=== PATIENT | male | born 1965 | race Caucasian/White ===

== ENCOUNTER 2019-11-15 13:47 | Emergency (ER) | payer BC, SELFPAY ==
--- NOTE | ~2019-11-15 | XR_ITS ---
EXAMINATION: XR chest 2V DATE: 11/15/2019 14:24 INDICATION: Cough. Fever. TECHNIQUE: Frontal and lateral views of the chest were obtained. COMPARISON: Chest 2 views 04/01/2018, CT abdomen and pelvis 04/14/2018 FINDINGS: The chest demonstrates clear lungs without pneumonia, pleural effusion, or pneumothorax. Th e heart size is normal. IMPRESSION: 1. No acute cardiopulmonary disease. Reviewed, dictated and finalized at location A. [employer]
[2019-11-15 13:50] VITALS: BP 139/97; PULSE 131; RESP 20; TEMP 38.9; O2SAT 100
--- NOTE | 2019-11-15 14:00 | ED.GENADULT ---
HPI - General Adult General Chief complaint: Unspecified Stated complaint: multiple complaints Time Seen by Provider: 11/15/19 13:59 Source: patient Mode of arrival: ambulatory Limitations: no limitations History of Present Illness HPI narrative: Pt is a 53 y/o male who presents to the ED with c/o palpitations, dizziness, and weakness for 1 week. He notes that he spiked a fever today and went and saw his PCP, Dr. Cameron who recommended he come to the ED. Pt denies a cough, rhinorrhea, ABD pain, nausea, or vomiting. Pt took Ibuprofen last night. He is a 1PPD smoker. MD complaint: Palpitations Onset (ago): week(s) (1) Associated symptoms: fever/chills and other (dizziness, weakness) Treatments prior to arrival: other (Ibuprofen last night) Related Data Allergies Allergy/AdvReac Type Severity Reaction Status Date / Time No Known Allergies Allergy Unverified 04/14/18 12:52 Review of Systems Review of Systems: All systems reviewed & are unremarkable except as noted in HPI and below Constitutional: Constitutional: Reports fever(s) and Reports weakness ENT: Denies other (rhinorrhea) Cardiovascular: Cardiovascular: Reports palpitations Respiratory: Respiratory: Denies cough Gastrointestinal: Gastrointestinal: Denies abdominal pain, Denies nausea and Denies vomiting Neurologic: Reports dizziness PMFSH Past Medical History Medical History (Updated 11/15/19 @ 16:33 by Oscar Noe DO) No significant past medical history Surgical History Surgical History (Updated 11/15/19 @ 14:12 by Patty Vila) No significant past surgical history Social History Social History (Updated 11/15/19 @ 14:12 by Patty Vila) Smoking packs per day: 1 Smoking cigarettes per day: 20.0 Smoking status: Current every day smoker Gender identity (if verbalized by the patient): Male Exam Narrative: Exam Narrative: APPEARANCE: No acute distress, nontoxic, resting in bed EYES: EOMI HEENT: Normocephalic, atraumatic, TMs clear bilaterally, mild tenderness boggy, mild erythema no exudate posterior pharynx Neck: Supple, nontender palpation, no meningismus RESPIRATORY: No respiratory distress Clear to auscultation bilaterally with no rhonchi wheezing or rales. CARDIOVASCULAR: Regular rate and rhythm without murmurs rubs or gallops. ABDOMINAL: Soft, nontender, nondistended, no rebound or guarding MUSCULOSKELETAl: Moves all extremities. No clubbing, cyanosis or edema. NEURO: Awake and alert. Following commands, speech normal, no focal deficits SKIN:: Warm, dry. No rashes lesions or abrasions PSYCHIATRIC: Normal affect/mood, Course Course Emergency Course: Discussed with patient results of workup and diagnosis. Discussed need for follow-up with primary care, proper use of medication, and reasons to return to the emergency department. Patient understands and agrees to current treatment plan Consultations Consultation #1: Discussed case with Dr. Cameron, PCP for the pt. Start on Z-pack and have pt follow up as outpatient Date: 11/15/19 Time: 16:27 Vital Signs Vital signs: Vital Signs Temperature 102.0 F H 11/15/19 13:50 Pulse Rate 131 H 11/15/19 13:50 Respiratory Rate 11/15/19 13:50 Blood Pressure 139/97 H 11/15/19 13:50 Pulse Oximetry 100 11/15/19 13:50 Temperature 102.0 F H 11/15/19 13:50 Pulse Rate 98 11/15/19 15:36 Respiratory Rate 11/15/19 15:36 Blood Pressure 121/83 11/15/19 15:36 Pulse Oximetry 95 11/15/19 15:36 Medical Decision Making Vital Signs Vital Signs: Vital Signs Temperature 102.0 F H 11/15/19 13:50 Pulse Rate 131 H 11/15/19 13:50 Respiratory Rate 11/15/19 13:50 Blood Pressure 139/97 H 11/15/19 13:50 Pulse Oximetry 100 11/15/19 13:50 Temperature 102.0 F H 11/15/19 13:50 Pulse Rate 98 11/15/19 15:36 Respiratory Rate 11/15/19 15:36 Blood Pressure 121/83 11/15/19 15:36 Pulse Oximetry 95 11/15/19 15:36 Lab Data Re
--- NOTE | 2019-11-15 14:14 | ECG_ITS ---
Measurements Intervals [place] Rate: 116 P: 5 HI: 187 QRS: -35 QRSD: 86 T: 20 QT: 282 QTc: 392 Interpretive Statements SINUS TACHYCARDIA LEFT AXIS DEVIATION RSR' IN V1 OR V2, CONSIDER RIGHT VENTRICULAR HYPERTROPHY OR RIGHT VCD DELAYED PRECORDIAL R/S TRANSITION BORDERLINE ECG Electronically Signed On 11-22-2019 12:48:54 BUSINESS PLANNING MANAGER by Raymundo Espinoza D.O.
[2019-11-15 14:25] LABS: Basophils Absolute Auto 0.1 K/mm3 (0.0-0.1); Basophils Percent Auto 0.5 % (0.2-1.2); Eosinophils Percent Auto 0.3 % (0-4.4); Hematocrit 40.8 % (42.0-52.0); Hemoglobin 13.6 g/dL (14.0-18.0); Immature Granulocyte Absolute 0.04 K/mm3 (0.00-0.031); Immature Granulocyte Percent A 0.4 % (0-0.5); Lymphocytes Absolute Auto 1.41 K/mm3 (0.9-3.2); Lymphocytes Percent Auto 13.8 % (18.3-44.2); Mean Corpuscular HGB Conc 33.3 g/dl (32-36); Mean Corpuscular Hemoglobin 28.6 pg (26-34); Mean Corpuscular Volume 85.9 fl (80-100); Mean Platelet Volume 9.1 fl (7.4-10.4); Monocytes Percent Auto 9.9 % (2.6-8.5); Neutrophils Absolute Auto 7.7 K/mm3 (1.3-6.7); Neutrophils Percent Auto 75.1 % (45.5-73.1); Platelet Count Result 378 k/mm3 (150-375); Red Blood Count 4.75 M/mm3 (4.6-6.20); Red Cell Distribution Width 12.9 % (11.5-14.5); White Blood Count 10.2 K/mm3 (4.5-10.0)
[2019-11-15 14:45] LABS: Alanine Aminotransferase 29 U/L (4-50); Albumin Level 4.4 g/dL (3.5-5.1); Alkaline Phosphatase 117 U/L (38-126); Aspartate Amino Transferase 30 U/L (17-59); Bilirubin,Total 0.7 mg/dL (0.2-1.3); Blood Urea Nitrogen 14 mg/dL (9-20); Calcium 9.3 mg/dL (8.4-10.2); Carbon Dioxide 27 mmol/L (22-30); Chloride 96 mmol/L (98-107); Estimated Glomerular Filt Rate > 60; Glucose 104 mg/dL (75-110); Lactic Acid Reflex 1.4 mmol/L (0.7-2.1); Potassium 4.1 mmol/L (3.4-5.0); Sodium 134 mmol/L (137-145)
[2019-11-15] MEDS: LACTATED RINGERS 1,000 ML 999 ML IV CONT ×2 (14:54→15:40)
[2019-11-15 15:11] LABS: Add Urine Microscopic? YES; Appearance Urine Clear (Clear); Bilirubin Urine Negative (Negative); Blood Urine 2+ (Negative); Color Urine Yellow (Yellow); Glucose Urine UA Negative (Negative); Ketones Urine Negative (Negative); Leukocyte Esterase Ur Negative LEU/UL (Negative); Mucus Urine Rare /lpf; Nitrate Urine Negative (Negative); Protein Urine 1+ mg/dL (Negative); Specific Grav Ur 1.016 (1.001-1.035); Squamous Epithelial Cell Urine Rare /hpf (Few); Urobilinogen Urine Negative mg/dL (<2.0); WBC Urine 0-3 /hpf
[2019-11-15 15:36] VITALS: BP 121/83; PULSE 98; RESP 19; O2SAT 95
[2019-11-15 18:00] VITALS: BP 124/85
--- NOTE | 2019-11-18 08:48 | PC.NURSE ---
LATE ENTRY This note is being entered to document information to the patient's record. The following information was omitted on [Tamar August], by [11/18/19] LR stopped at 1554 on 11/15/19 LR stopped at 1640 on 11/15/19.
== END 2019-11-15 17:00 | disposition home or self-care (01) ==
PROVIDERS: Emergency Provider Emergency Medicine; PCP Family Medicine
DX: B34.9 Viral infection, unspecified (principal); R00.0 Tachycardia, unspecified; F17.210 Nicotine dependence, cigarettes, uncomplicated
CPT/HCPCS: 36415; 71046; 80053; 81001; 83605; 85025; 87040; 87804; 93005; 96361; 96365; 99284; J0131; J7120

== ENCOUNTER 2020-10-27 12:21 | Outpatient (CLI) | payer BC, SELFPAY ==
--- NOTE | ~2020-10-27 | CT_ITS ---
EXAMINATION: CT abdomen w con EXAM DATE: 10/27/2020 13:03 INDICATION: I72.8 - Aneurysm of other specified arteries. TECHNIQUE: Spiral CT of the abdomen and pelvis was performed following intravenous injection of 100 m L Omnipaque 350. Axial, coronal and sagittal images were reviewed. The dose-length product (DLP) fo r this examination was 1008.51 mGy-cm. The exposure was tailored according to patient size (auto mA exposure control), and iterative reconstruction (ASIR) was used as additional dose reduction techniqu e. Comparison is made to prior examination from 04/14/2018. FINDINGS: There are 2 fusiform splenic artery aneurysms measuring 1.8 and 1.4 cm in maximal diameter, not significant changed. The splenic and hepatic arteries have separate origins, with a gastroduoden al branch of the hepatic artery demonstrating direct connection to a superior mesenteric vein tributa ry (finding indicated on axial image 73). This arteriovenous shunting is likely causing the prominent dilated left abdominal, omental and perigastric veins draining to the portal venous system. Aorta is normal in caliber. The liver, spleen, adrenal glands and pancreas are unremarkable. Gallbladder is unremarkable. No bi liary obstruction. Portal and splenic veins are patent. Kidneys enhance symmetrically. There is no hydronephrosis. There is a 5 mm left inferior calyceal stone. There is a left renal midpole cyst deon suring 3.9 cm. No retroperitoneal lymphadenopathy. Small umbilical fat-containing hernia. The appendix is normal. The stomach and small bowel are unremarkable. There is expected amount of c olonic stool. No free intraperitoneal gas. The heart is normal in size. There are no pericardial or pleural effusions. There is a 9 mm left lower lobe nodule in the posterior sulcus, new compared to prior study. There are no osteoblastic or osteolytic lesions identified. IMPRESSION: 1. New indeterminate left lower lobe 9 mm nodule; recommend 3 month follow-up low-dose chest CT. 2. 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 Resultant dilated perigastric, and greater omental and left abdominal veins. 3. Stable fusiform splenic artery aneurysms. 4. Left nephrolithiasis. Reviewed, dictated and finalized at location B. CAL OFFICE SCHEDULER IMPRESSION: 1. New indeterminate left lower lobe 9 mm nodule; recommend 3 month follow-up low-dose chest CT. 2. Arteriovenous communication, shunting identified between gastroduodenal bra nch and SMV tributary. Resultant dilated perigastric, and greater omental and l eft abdominal veins. 3. Stable fusiform splenic artery aneurysms. 4. Left nephrolithiasis.
[2020-10-27 12:53] LABS: Estimated Glomerular Filt Rate > 60
== END 2020-10-27 12:22 | disposition home or self-care (01) ==
LOC: ANHIMG 12:31
PROVIDERS: PCP Internal Medicine; Visit Provider Nurse Practitioner
DX: I72.8 Aneurysm of other specified arteries (principal); N20.0 Calculus of kidney
CPT/HCPCS: 74160; Q9967

== ENCOUNTER 2020-11-28 09:20 | Outpatient (CLI) | payer BC, SELFPAY ==
--- NOTE | 2020-12-11 13:59 | WPDHOMESLEEP ---
Sleep Study - Home Unattended Date of Study: 11/28/20 Ordering Provider: Julio Cesar Cuevas DO Interpreting Provider: Angélica Courtney MD Home Sleep Study Type: Apnea Link Air Height: 1.75 m Weight: 113.398 kg Body Mass Index: 36.9 Neck Circumference (inches): 16 [place]: 16 Reason for Sleep Study Always feels tired, sleepy in the day Sleep History Jose Gross is a 55 year-old man with hypertension who constantly snores and it is constantly loud enough the others complain about it. He has difficulty falling asleep, he wakes up throughout the night, he has a difficult time waking in the morning and he sleepy all day. He had a test over 5 years ago was told that he did not have enough episodes thus qualify for treatment. There is a positive family history with his mother having sleep apnea. He rarely awakens at night with heartburn, belching or coughing. He rarely awakens from sleep feeling short of breath. He rarely has trouble sleeping with a cold. He rarely wakes up gasping for breath at night. He occasionally has breathing problems at night observed by others. He frequently sweats excessively at night. He occasionally notices his heart pounding or beating irregularly at night. He frequently falls asleep during the day, occasionally involuntarily rarely while driving. He does not fall asleep while exerting physical effort. He does not have loss of muscle tone was strong emotion. He rarely has daytime difficulties due to excessive sleepiness. He does not feel paralyzed on waking or falling asleep. He occasionally has vivid dreamlike scenes upon awakening or falling asleep. He occasionally feels afraid to go to sleep. He occasionally has nightmares. He rarely remembers his dreams. He occasionally has racing thoughts. He rarely feels sad or depressed. On occasion he feels anxiety. He rarely has muscular tension. He rarely notices parts of his body jerking. He occasionally kicks at night, occasionally has crawling and aching feelings in his legs and occasionally has leg pain at night. He rarely has morning jaw pain. He occasionally grind his teeth during sleep, occasionally is bothered by pain during the day and occasionally is awakened by pain at night. He frequently wakes up feeling stiff in the morning with sore achy muscles and pain in the neck and spine. He has headaches, palpitations, fatigue and bowel disturbances. Normal bedtime is 12:00 a.m. taking 1-2 hours to fall asleep typically waking 3-6 times at night. He tosses and turns. He wakes the morning between 6 and 8:00 a.m.. He estimates getting only 4-6 hours of sleep on a typical night. His weekend schedule is the same. He takes naps in the afternoon or evening. A short nap is not refreshing. He is drowsy in the morning for 3 hours or longer. Habits: Tobacco 1 pack per day. Caffeine 2 cups of coffee a day 2 per week No recreational drugs. [facility] Past Medical History Medical History Essential (primary) hypertension Hyperlipidemia Splenic artery aneurysm Surgical History Surgical History No significant past surgical history Family History Family History Father , Cancer Lung cancer Mother Heart disease Sibling Bladder cancer Sibling Breast cancer Sibling Leukemia Social History Social History (Updated 10/19/20 @ 10:17 by Daniel Corley APRN) Smoking packs per day: 1 Smoking cigarettes per day: 20.0 Years smoked: 25 Smoking pack-years: 25.00 Smoking status: Current every day smoker Substance use: never Additional occupation/education comments: Currently laid off maintenance specialist for local [employer] Gender identity (if verbalized by the patient): Male Medications Home Medications Medication Instructions Recorded Co
[2020-12-11 14:10] VITALS: BMI 36.9
== END 2020-11-28 09:21 | disposition home or self-care (01) ==
LOC: ANHCSM 09:20
PROVIDERS: PCP Internal Medicine; Visit Provider Internal Medicine
DX: G47.10 Hypersomnia, unspecified (principal); G47.33 Obstructive sleep apnea (adult) (pediatric)
CPT/HCPCS: 95806

== ENCOUNTER → 2020-12-15 02:11 | Outpatient (CLI) | payer BC, SELFPAY ==
[2020-12-16 08:28] LABS: SARS-CoV-2 RNA PCR Negative
== END ==
PROVIDERS: PCP Internal Medicine; Visit Provider Internal Medicine Critical Care Medicine
DX: R68.89 Other general symptoms and signs (principal); Z20.822 Contact with and (suspected) exposure to COVID-19
CPT/HCPCS: C9803; U0003; U0005

== ENCOUNTER 2020-12-18 09:15 | Outpatient (CLI) | payer BC, SELFPAY ==
--- NOTE | 2021-01-10 10:21 | WPDSLEEPSTUD ---
Sleep Study Ordering Provider: Julio Cesar Cuevas DO Interpreting Physician: Angélica Courtney MD Sleep Study Type: CPAP Titration Height: 1.75 m Weight: 113.398 kg Body Mass Index: 36.9 Neck Circumference (inches): 16 [place]: 18 Reason for Sleep Study Home sleep test on 11/28/2020 with AHI 12.3, desaturation to 81% with central apneas, presents for CPAP titration Sleep History Jose Gross is a 55 year-old man with hypertension who constantly snores and it is constantly loud enough the others complain about it. He has difficulty falling asleep, he wakes up throughout the night, he has a difficult time waking in the morning and he sleepy all day. He had a test over 5 years ago was told that he did not have enough episodes thus qualify for treatment. There is a positive family history with his mother having sleep apnea. He rarely awakens at night with heartburn, belching or coughing. He rarely awakens from sleep feeling short of breath. He rarely has trouble sleeping with a cold. He rarely wakes up gasping for breath at night. He occasionally has breathing problems at night observed by others. He frequently sweats excessively at night. He occasionally notices his heart pounding or beating irregularly at night. He frequently falls asleep during the day, occasionally involuntarily rarely while driving. He does not fall asleep while exerting physical effort. He does not have loss of muscle tone was strong emotion. He rarely has daytime difficulties due to excessive sleepiness. He does not feel paralyzed on waking or falling asleep. He occasionally has vivid dreamlike scenes upon awakening or falling asleep. He occasionally feels afraid to go to sleep. He occasionally has nightmares. He rarely remembers his dreams. He occasionally has racing thoughts. He rarely feels sad or depressed. On occasion he feels anxiety. He rarely has muscular tension. He rarely notices parts of his body jerking. He occasionally kicks at night, occasionally has crawling and aching feelings in his legs and occasionally has leg pain at night. He rarely has morning jaw pain. He occasionally grind his teeth during sleep, occasionally is bothered by pain during the day and occasionally is awakened by pain at night. He frequently wakes up feeling stiff in the morning with sore achy muscles and pain in the neck and spine. He has headaches, palpitations, fatigue and bowel disturbances. Normal bedtime is 12:00 a.m. taking 1-2 hours to fall asleep typically waking 3-6 times at night. He tosses and turns. He wakes the morning between 6 and 8:00 a.m.. He estimates getting only 4-6 hours of sleep on a typical night. His weekend schedule is the same. He takes naps in the afternoon or evening. A short nap is not refreshing. He is drowsy in the morning for 3 hours or longer. Habits: Tobacco 1 pack per day. Caffeine 2 cups of coffee a day 2 per week No recreational drugs. 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
[2021-01-10 10:48] VITALS: BMI 36.9
== END 2020-12-18 09:16 | disposition home or self-care (01) ==
LOC: ANHCSM 09:15
PROVIDERS: PCP Internal Medicine; Visit Provider Internal Medicine
DX: G47.33 Obstructive sleep apnea (adult) (pediatric) (principal)
CPT/HCPCS: 95811

== ENCOUNTER 2021-02-21 14:15 | Outpatient (CLI) | payer BC, SELFPAY ==
--- NOTE | ~2021-02-21 | CT_ITS ---
EXAMINATION: CT diagnostic chest wo con EXAM DATE: 02/21/2021 14:33 INDICATION: 3 month F/U pulmonary nodule. TECHNIQUE: Spiral CT of the chest following intravenous injection of 75 mL Omnipaque 350. Axial, cor onal and sagittal images of the chest were reviewed. Coronal maximum intensity pixel images of chest reviewed. The dose-length product (DLP) for this examination was 273.57 mGy-cm. The exposure was t ailored according to patient size (auto mA exposure control), and iterative reconstruction (ASIR) was used as additional dose reduction technique. Correlation is made to abdomen pelvis CT 10/27/2020. FINDINGS: Left lower lobe nodule measuring 9 x 11 mm, appears unchanged in size compared to October, could be a noncalcified granuloma. Additional history provided with this exam that patient does use tobacco, is at risk for lung cancer. 3 months stability is comforting, therefore could obtain a six-m [facility] follow-up exam rather than PET/CT at this time (nodule is just at the size threshold to evaluate by PET CT). The lungs are otherwise clear. Compared to previous examination, there are multiple coils within the splenic artery, with sizable lo w density region at its anterior inferior aspect measuring about 6 cm in diameter, probably recent ia trogenic infarction with edema causing increased size. This would be expected to decrease in size on follow-up. Again there are serpiginous upper abdominal collaterals from the previously placed right-s ided arteriovenous shunting. There are no pleural or pericardial effusions. Tracheobronchial tree is patent. There is no media stinal, hilar or axillary lymphadenopathy. There is no pneumothorax. Heart normal in size. Ther e is mild coronary arterial calcification, arterial sclerosis. There is thoracic spondylosis without osteoblastic or osteolytic lesions identified. Lower thoracic diffuse idiopathic skeletal hyperost osis. IMPRESSION: 1. Indeterminate left lower lobe nodule demonstrating 3 months stability; consider 6 month follow-up noncontrast chest CT. 2. Interval splenic arterial coils, spleen appearance probably from relatively recent iatrogenic inf arction. 3. 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 Reviewed, dictated and finalized at location A. IMPRESSION: 1. Indeterminate left lower lobe nodule demonstrating 3 months stability; cons ider 6 month follow-up noncontrast chest CT. 2. Interval splenic arterial coils, spleen appearance probably from relatively recent iatrogenic infarction. 3. 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
== END 2021-02-21 14:16 | disposition home or self-care (01) ==
PROVIDERS: PCP Internal Medicine; Visit Provider Nurse Practitioner
DX: R91.1 Solitary pulmonary nodule (principal)
CPT/HCPCS: 71250

== ENCOUNTER 2021-02-27 13:44 | Outpatient (CLI) | payer BC, SELFPAY ==
--- NOTE | ~2021-02-27 | XR_ITS ---
XR tibia fibula RT 2V DATE: 02/27/2021 13:57 INDICATION: Lateral midshaft pain right lower leg; no injury. TECHNIQUE: AP and lateral views COMPARISON: None FINDINGS: No fracture, dislocation, periosteal reaction or bone destruction. IMPRESSION: Negative Reviewed, dictated and finalized at location B. IMPRESSION: Negative
== END 2021-02-27 13:45 | disposition home or self-care (01) ==
PROVIDERS: PCP Internal Medicine; Visit Provider Internal Medicine
DX: M79.604 Pain in right leg (principal)
CPT/HCPCS: 73590

== ENCOUNTER 2021-03-19 12:30 | Outpatient (CLI) | payer BC, SELFPAY ==
--- NOTE | ~2021-03-19 | US_ITS ---
EXAMINATION: US soft tissue LE RT DATE: 03/19/2021 12:48 INDICATION: Lateral right calf pain with palpable abnormality on prior physical exam. TECHNIQUE: Multiple grayscale and Doppler ultrasound images of the lateral right calf were obtained. COMPARISON: Radiographs dated 02/27/2021 FINDINGS: Normal appearance to the subcutaneous fat and muscles the region of concern at the right calf. No abn ormal masses or fluid collections identified. IMPRESSION: 1. Normal study. Reviewed, dictated and finalized at location A. IMPRESSION: 1. Normal study.
== END 2021-03-19 12:31 | disposition home or self-care (01) ==
PROVIDERS: PCP Internal Medicine; Visit Provider Internal Medicine
DX: M79.604 Pain in right leg (principal)
CPT/HCPCS: 76882

== ENCOUNTER 2021-03-31 10:44 | Outpatient (CLI) | payer BC, SELFPAY ==
--- NOTE | ~2021-03-31 | MR_ITS ---
EXAMINATION: MR lower leg RT wo con DATE: 03/31/2021 11:53 INDICATION: Lateral right calf pain with palpable lump. TECHNIQUE: Magnetic resonance imaging (MRI) of the right calf was performed without intravenous contr ast. Sequences included axial T1-weighted FSE, axial T2-weighted FS FSE, coronal T1-weighted FSE, cor onal T2-weighted FS FSE, sagittal T1-weighted FSE and sagittal T2-weighted FS FSE. The contralateral left calf is included on the coronal images. COMPARISON: Right lower leg radiographs dated 02/27/2021 and ultrasound dated 03/29/2021 FINDINGS: Bones are unremarkable with normal marrow signal throughout. No fracture, reactive edema, erosions or pathologic marrow replacing process. Normal and symmetric muscle bulk and signal throughout both krissy ves. The visualized portions of the tendons are normal. Neurovascular structures are unremarkable. No abnormal masses or fluid collections identified. IMPRESSION: 1. Normal MRI of the right lower leg. No abnormal masses, fluid collections or other etiology identif ied for reported lateral calf palpable abnormality and pain. Reviewed, dictated and finalized at location A. IMPRESSION: 1. Normal MRI of the right lower leg. No abnormal masses, fluid collections or other etiology identified for reported lateral calf palpable abnormality and pa in.
== END 2021-03-31 10:45 | disposition home or self-care (01) ==
LOC: ANHIMG 10:46
PROVIDERS: PCP Internal Medicine; Visit Provider Internal Medicine
DX: M79.604 Pain in right leg (principal)
CPT/HCPCS: 73718

== ENCOUNTER → 2021-06-11 15:11 | Outpatient (CLI) | payer BC, SELFPAY ==
--- NOTE | ~2021-06-11 | MR_ITS ---
EXAMINATION: MR lumbar spine wo con DATE: 06/11/2021 16:08 INDICATION: Low back pain. TECHNIQUE: Magnetic resonance imaging (MRI) of the lumbar spine was performed without intravenous con trast. Sequences included sagittal T2-weighted FSE, sagittal T2-weighted FS FSE, sagittal T1-weighted FSE, and axial T2-weighted FSE. COMPARISON: CT abdomen 10/27/2020 FINDINGS: Bone alignment is normal. Vertebral body heights are normal. Intervertebral disc heights ar e normal. There are bridging endplate osteophytes from the thoracic spine to L2, consistent with diff use idiopathic skeletal hyperostosis (DISH). The distal spinal cord signal intensity is normal. The c onus medullaris is at L1-L2. There is a 4.4 cm cyst in left kidney. There is moderate left hydronephr osis. The following disc levels are specifically discussed: L1-L2: The disc does not extend beyond the endplate margin. There is mild bilateral facet joint osteo arthritis. There is no neural foraminal stenosis. There is no central canal stenosis. L2-L3: The disc does not extend beyond the endplate margin. There is mild bilateral facet joint osteo arthritis. There is no neural foraminal stenosis. There is no central canal stenosis. L3-L4: The disc does not extend beyond the endplate margin. There is mild bilateral facet joint osteo arthritis. There is no neural foraminal stenosis. There is no central canal stenosis. L4-L5: The disc is bulging. There is severe bilateral facet joint osteoarthritis. There is moderate r ight and mild left neural foraminal stenosis. There is mild central canal stenosis. There is moderate stenosis of right lateral recess. L5-S1: The disc is bulging and has an annular fissure. There is moderate right and severe left facet joint osteoarthritis. There is mild bilateral neural foraminal stenosis. There is mild central canal stenosis. IMPRESSION: 1. Moderate left hydronephrosis, new from 10/27/2020. 2. Moderate lumbar spondylosis. 3. DISH. Reviewed, dictated and finalized at location A.
== END ==
PROVIDERS: Visit Provider Orthopaedic Surgery
DX: M54.5 Low back pain (principal); M47.896 Other spondylosis, lumbar region; M48.16 Ankylosing hyperostosis [Forestier], lumbar region
CPT/HCPCS: 72148

== ENCOUNTER 2021-06-26 14:45 | Outpatient (CLI) | payer BC, SELFPAY ==
--- NOTE | ~2021-06-26 | XR_ITS ---
EXAMINATION: XR abdomen/kub 1V INDICATION: Left-sided kidney stone TECHNIQUE: Supine views of the abdomen were obtained on 2 radiographs. COMPARISON: CT, 04/14/2018 FINDINGS: There are phleboliths of the pelvis. No definite urolithiasis is identified. There are rendon ges of interval embolization likely in the splenic and gastroduodenal arteries. The bowel gas pattern is normal. There is mild osteoarthritis of the hips. IMPRESSION: 1. No definite urolithiasis identified. Reviewed, dictated and finalized at location A.
== END 2021-06-26 14:46 | disposition home or self-care (01) ==
LOC: ANHIMG 14:50
PROVIDERS: PCP Internal Medicine; Visit Provider Nurse Practitioner Adult Health
DX: N20.0 Calculus of kidney (principal)
CPT/HCPCS: 74018

== ENCOUNTER 2021-07-04 13:50 | Outpatient (CLI) | payer BC, SELFPAY ==
--- NOTE | ~2021-07-04 | CT_ITS ---
EXAMINATION: CT abdomen pelvis wo con DATE: 07/04/2021 14:17 INDICATION: Left flank pain. Microscopic hematuria. TECHNIQUE: Computed tomography (CT) of the abdomen and pelvis was performed without intravenous contr ast. Automated exposure control and iterative reconstruction technique were employed. The dose-length product was 750.70 mGy-cm. COMPARISON: 10/27/2020 FINDINGS: No interval change in a 9 mm left lower lobe nodule. Heart size is normal. Mild aortic valve calcific ation. No pericardial or pleural effusion. Punctate calcified gallstone in the decompressed gallbladd er. Liver, spleen, pancreas, bilateral adrenal glands and right kidney are normal. 4.2 cm left renal cyst. Mild left hydroureteronephrosis proximal to a 5 mm stone at the mid left ureter. No other uroli thiasis on either the right or left. 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 Significant decrease in size of the previous a dilated gastrosplenic and omental collaterals. There is mild to moderate colonic diverticulosis with a sigmoid predominance. T here is no adjacent inflammatory change to suggest diverticulitis. Small bowel and appendix are norm al. Bladder is normal. No free intraperitoneal gas or fluid. No pathologically enlarged abdominal or pelvic lymphadenopathy. There are bridging osteophytes at multiple levels in the spine, consistent wi th diffuse idiopathic skeletal hyperostosis (DISH). IMPRESSION: 1. 5 mm likely partially obstructing stone stone along the mid left ureter with mild more proximal le ft hydroureteronephrosis. 2. Cholelithiasis. 3. Unchanged 9 mm left lower lobe nodule. Recommend additional one-year follow-up low-dose noncontras t chest CT. 4. 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 Reviewed, dictated and finalized at location A. IMPRESSION: 1. 5 mm likely partially obstructing stone stone along the mid left ureter with mild more proximal left hydroureteronephrosis. 2. Cholelithiasis. 3. Unchanged 9 mm left lower lobe nodule. Recommend additional one-year follow- up low-dose noncontrast chest CT. 4. Interval embolization of the splenic artery and a a likely arteriovenous fis sean between the gastroduodenal artery and its branch of the superior mesenteri c vein.
== END 2021-07-04 13:51 | disposition home or self-care (01) ==
PROVIDERS: PCP Internal Medicine; Visit Provider Nurse Practitioner Adult Health
DX: R91.1 Solitary pulmonary nodule (principal); K80.20 Calculus of gallbladder without cholecystitis without obstruction
CPT/HCPCS: 74176

== ENCOUNTER 2021-07-05 10:03 | Day surgery (SDC) | payer BC, SELFPAY ==
[2021-07-05] VITALS (8 sets, daily range): BP systolic 99–122; BP diastolic 69–85; PULSE 55–91; RESP 14–20; TEMP 36.2–37; O2SAT 99–100; BMI 36.9
--- NOTE | ~2021-07-05 | XR_ITS ---
XR abdomen/kub 1V 07/05/2021 12:25 INDICATION: Left renal stones TECHNIQUE: KUB COMPARISON: 06/26/2021 FINDINGS: Bowel gas pattern is normal. There is no evidence of free air, mass, organomegaly, ascites or obstruction. No abnormal calculi are seen. The bones appear intact. There are embolization coil s in the upper abdomen. Moderate colonic fecal loading. Mild lumbar spondylosis. Calcifications in th e pelvis are believed to be phleboliths. IMPRESSION: 1: No acute abdominal abnormality identified. Reviewed, dictated and finalized at location A.
--- NOTE | ~2021-07-05 | XR_ITS ---
EXAMINATION: XR retrograde pyelo w/stent LT DATE: 07/05/2021 14:53 INDICATION: Left internal ureteral stent placement TECHNIQUE: Fluoroscopic images from a left internal ureteral stent placement are submitted for review . 36 seconds of fluoroscopy time. 8 fluoroscopic images FINDINGS: There is a left double-J internal ureteral stent projecting in expected position, with proximal [place] loop at the level of the renal pelvis and distal loop in the pelvis within the bladder lumen. IMPRESSION: 1. Left internal ureteral stent placement. Please refer to real-time procedural findings for detail s. Reviewed, dictated and finalized at location A. IMPRESSION: 1. Left internal ureteral stent placement. Please refer to real-time procedur al findings for details.
--- NOTE | 2021-07-05 10:59 | P.PNAN_ITS ---
Anes - Initial Pre Proc Eval Procedure: Operation Date: 07/05/21 14:30 Proposed Procedures p Cystoscopy, Left Ureteroscopy, Left Retrograde Pyelogram, Possible Left Ureteral Stent Placement, - Andrea Tan MD s Possible Holmium Laser Procedure, Stone Extraction - Andrea Tan MD Date/Time: 07/05/21 10:59 Surgeon: Andrea Tan MD Pre Op Diagnosis: Left Ureteral Stone Patient Data Age: 55 Gender: M Height: 1.75 m Weight: 113.5 kg Allergies Allergy/AdvReac Type Severity Reaction Status Date / Time No Known Allergies Allergy Verified 07/05/21 10:32 Home Medications Medication Instructions Recorded Confirmed Type amlodipine 5 mg tablet 7.5 mg PO DAILY #135 tablet 05/29/21 07/05/21 Rx atorvastatin 10 mg PO HS 07/05/21 07/05/21 History lisinopril 40 mg PO HS 07/05/21 07/05/21 History Patient hx anesthesia problems: none Family hx anesthesia problems: none Results Review: All pre-operative results and documents have been reviewed as part of the pre-operative evaluation. [facility] Past Medical History Medical History (Updated 07/05/21 @ 11:01 by Matthew Dee MD) Body mass index [BMI] 37.0-37.9, adult Essential (primary) hypertension Hyperlipidemia Hypersomnolence Low back pain Obstructive sleep apnea (~11/2020) Splenic artery aneurysm Surgical History Surgical History No significant past surgical history Family History Family History Father , Cancer Lung cancer Mother Heart disease Sibling Bladder cancer Sibling Breast cancer Sibling Leukemia Other Cerebrovascular accident High cholesterol Hypertension Social History Social History Smoking packs per day: 1 Smoking cigarettes per day: 20.0 Years smoked: 30 Smoking pack-years: 30.00 Smoking status: Current every day smoker Tobacco type: cigarettes Second hand tobacco smoke exposure: Yes Alcohol intake: current Drinks per week: 3 Alcohol use details: A COUPLE/MONTH Substance use: never Substance use type: does not use Additional occupation/education comments: Currently laid off scheduler maintenance for [employer] Gender identity (if verbalized by the patient): Male Spiritual care concerns: No Anes - Eval Final PreProcedure Day of Procedure 07/05/21 10:59 Patient weight: obese Heart: regular rate and rhythm Lungs: clear to auscultation and normal air movement Airway: Mallampati scale class II Neurological: alert and oriented Last oral intake: >/= 8 hours ASA classification: III Emergent: no Anesthetic plan: proceed Anesthesia type and monitoring: general LMA Results Review: All pre-operative results and documents have been reviewed as part of the pre-operative evaluation. Informed Consent: The patient's anesthetic plan and its attendant risks and benefits were discussed with the patient/family/POA. Questions were solicited and answers provided to the satisfaction of the patient/family/POA.
--- NOTE | 2021-07-05 12:07 | ECG_ITS ---
Measurements Intervals [place] Rate: 89 P: 20 [place]: 190 QRS: -33 QRSD: 95 T: 40 QT: 328 QTc: 401 Interpretive Statements SINUS RHYTHM LEFT AXIS DEVIATION INCOMPLETE RIGHT BUNDLE BRANCH BLOCK DELAYED PRECORDIAL R/S TRANSITION BASELINE ARTIFACT- I, III, AVR, AVL BORDERLINE ECG Electronically Signed On 07-05-2021 12:29:19 CDT by Raymundo Espinoza D.O.
[2021-07-05 12:45] LABS: Add Urine Microscopic? YES; Appearance Urine Clear (Clear); Bilirubin Urine Negative (Negative); Blood Urine 2+ (Negative); Color Urine Yellow (Yellow); Glucose Urine UA Negative (Negative); Ketones Urine Negative (Negative); Leukocyte Esterase Ur Negative LEU/UL (Negative); Nitrate Urine Negative (Negative); Protein Urine Negative (Negative); RBC Urine 0-2 /hpf (0-2); Urobilinogen Urine Negative mg/dL (<2.0); WBC Urine 0-3 /hpf
--- NOTE | 2021-07-05 12:57 | WPDHPUPDATE1 ---
History and Physical Update Update Date/Time: 07/05/21 12:57 History and Physical has been reviewed, including an updated exam of the patient. There are NO changes in the patient's condition. Risks, benefits, and alternatives have been discussed and questions answered. Patient agrees to proceed with procedure. proceed with cysto left rpg, left ureteroscopy with stone extraction, possible laser, stent
[2021-07-05] MEDS: LACTATED RINGERS 1,000 ML 30 ML IV CONT ×2 (13:06→14:53)
[2021-07-05] MEDS: ceFAZolin 2 GM/D5W 50 ML 2 GM/50 ML BAG IVPB (13:58)
[2021-07-05] MEDS: LIDOCAINE HCL 2% GEL UROJET 10 ML PKG MUCOUS MEM (14:20)
--- NOTE | 2021-07-05 14:50 | W.PM.PROC2 ---
Procedure Note - Detailed Date of Procedure 07/05/21 Pre-op Diagnosis Left Ureteral Stone Post-op Diagnosis same Procedure Performed Cystoscopy, left retrograde pyelogram, left ureteroscopy with holmium laser, stone extraction, left stent placement 4.8 [place] contour Surgeon Andrea Tan MD Anesthesia general Description of Procedure Patient is taken to the operative suite correctly identified. Once anesthesia was obtained was placed in dorsal lithotomy position and prepped draped usual sterile fashion. Twenty-two [place] scope was inserted into the bladder. He does have some lateral lobe hypertrophy. The bladder itself shows no tumors. Left ureteral orifice was cannulated with a guidewire. The 8/10 dilator was used to dilate the ureter. Flexible ureteral scope was inserted. He did have somewhat of a tight ureter. We were able to manipulate the scope up to the stent. It was too large to retrieved 1 piece. We used a holmium laser fiber to fragment in multiple pieces. In order to retrieve these we had to place ureteral access sheath in. These were then retrieved. Reinspection revealed no residual stones. Pyelogram was performed to confirm placement of the stent. 4.8 [place] contour stent was then placed with the proximal end coiled in the renal pelvis and the distal in the bladder. 2% viscous lidocaine was inserted into the urethra patient is taken recovery stable condition. He will follow up after he gets back from [place] to have the stent removed in the office. He is to call for that appointment. Drains Yes Packing No Pathology yes Complications No immediate complications Condition stable Disposition PACU
--- NOTE | 2021-07-05 15:10 | SUR.PHASEI ---
1505-URGENCY TO VOID, URINAL GIVEN, UNSUCCESSFUL.
[2021-07-05] MEDS: fentaNYL CITRATE INJ (*CRX) 100 MCG/2 ML VIAL 25 MCG IV PUSH ×4 (15:18→15:35)
[2021-07-05] MEDS: ONDANSETRON INJ 4 MG/2 ML VIAL IV PUSH (15:32)
--- NOTE | 2021-07-05 16:11 | SUR.PHASEII ---
1551-INSISTENT TO USE BATHROOM ON ARRIVAL TO OP. AMBULATED FROM STRETCHER AT BR DOOR TO TOILET AREA. INSTRUCTED TO PULL CALL LIGHT FOR ASSIST. 1556-SUMMONED TO BATHROOM, PT FEELING SOMEWHAT DIZZY AND NAUSEATED, ASSISTED TO W/C AND TAKEN TO OP ROOM TO RECLINER. IVF RECONNECTED AND RATE INCREASED. 1610-SITTING MORE UPRIGHT IN RECLINER, TAKING SODA AND CRACKERS AND STATES FEELS BETTER.
--- NOTE | 2021-07-05 16:46 | SUR.PHASEII ---
1646-PT READY FOR DISCHARGE, UNABLE TO REACH , SECOND MESSAGE LEFT.
--- NOTE | 2021-07-05 16:50 | SUR.PHASEII ---
1650-PT REACHED , WILL BE ON WAY FOR FORMING FIXER.
== END 2021-07-05 17:18 | disposition home or self-care (01) ==
PROVIDERS: PCP Internal Medicine; Visit Provider Urology
PROC: (CPT 52352; principal; 2021-07-05 14:30)
PROC: (CPT 52356; 2021-07-05 14:30)
DX: N20.1 Calculus of ureter (principal); I10 Essential (primary) hypertension; E78.5 Hyperlipidemia, unspecified; G47.33 Obstructive sleep apnea (adult) (pediatric); F17.210 Nicotine dependence, cigarettes, uncomplicated; E66.9 Obesity, unspecified; Z68.36 Body mass index [BMI] 36.0-36.9, adult
CPT/HCPCS: 52356; 74018; 74420; 81001; 82365; 88300; 93005; A9270; C1769; C1894; C2617; J0690; J2250; J2370; J2405; J2704; J3010; J7120; Q9966

== ENCOUNTER 2021-10-04 13:19 | Outpatient (CLI) | payer BC, SELFPAY ==
--- NOTE | ~2021-10-04 | US_ITS ---
US retroperitoneal comp 10/04/2021 14:07 Procedure: Realtime transabdominal ultrasound of the kidneys and bladder. Indication: Left ureteral stone Comparison: CT dated 07/04/2021 Findings: Renal echotexture is normal bilaterally without hydronephrosis, contour deforming mass or r enal calculus. There is 4.3 cm simple cyst of the left ovary. The right kidney measures 10.3 cm and l eft kidney measures 11.3 cm. Bladder within normal limits. Impression: 1: Left renal cyst measuring 4.3 cm. Otherwise, unremarkable renal ultrasound. Reviewed, dictated and finalized at location A. L GRINDER Impression: 1: Left renal cyst measuring 4.3 cm. Otherwise, unremarkable renal ultrasound.
== END 2021-10-04 13:20 | disposition home or self-care (01) ==
LOC: ANHIMG 13:20
PROVIDERS: PCP Internal Medicine; Visit Provider Urology
DX: N20.1 Calculus of ureter (principal); N28.1 Cyst of kidney, acquired
CPT/HCPCS: 76770

== ENCOUNTER 2022-03-20 07:16 | Outpatient (CLI) | payer BC, SELFPAY ==
--- NOTE | 2022-03-20 07:35 | EST_ITS ---
Patient Info Name: Jose Gross Age: 56 years : 1965 Gender: Male Ht: 69 in Wt: 250 lbs BSA: 2.40 m2 HR: 79 bpm BP: 130 / 83 mmHg Heart Rhythm: Sinus Rhythm Technical Quality: Good Exam Date: 03/20/2022 9:05 AM Exam Location: [facility] Patient Status: Outpatient Admit Date: 03/20/2022 Staff Ordering Physician: Raymundo Espinoza DO Lamp Assembler: Laura Sutherland RDCS Attending Provider: Raymundo Espinoza DO Referring Physician: Alexis MELO; Exercise Technologist: Kelli Armenta CT Exercise Physician: Raymundo Espinoza DO Exam Type: CA stress echo Study Info Indications - chest pain Treadmill exercise stress echocardiogram is performed. Summary 1. 1. Negative [place] exercise stress test for ischemic ST changes by ECG criteria. 2. 2. Reduced functional capacity, achieving 7 METs of workload. 3. 3. Appropriate HR response to exercise. 4. 4. Appropriate HR recovery at 1 minute post exercise. 5. 5. Negative stress echocardiogram for ischemia by wall motion analysis. 6. 6. Patient informed of the above results. Stress Echo Findings Left Ventricle Appropriate increase in LV endocardial thickening with systole. Appropriate augmentation of contractility with systole. No wall motion abnormality. Left Ventricle Normal LV systolic function, no wall motion abnormality. Protocol: [place] Stress ECG Details Stage: REST Duration (min): 1 min : 4 sec Speed (mph): 0.0 Grade (%): 0 HR (bpm): 81 SBP (mmHg): 130 DBP (mmHg): 83 METS: --- Stage: REST Duration (min): 34 min : 19 sec Speed (mph): 0.0 Grade (%): 0 HR (bpm): 88 SBP (mmHg): 130 DBP (mmHg): 83 METS: --- Stage: STAGE 1 Duration (min): 1 min : 0 sec Speed (mph): 1.7 Grade (%): 10 HR (bpm): 104 SBP (mmHg): 130 DBP (mmHg): 83 METS: --- Stage: STAGE 1 Duration (min): 2 min : 0 sec Speed (mph): 1.7 Grade (%): 10 HR (bpm): 116 SBP (mmHg): 130 DBP (mmHg): 83 METS: --- Stage: STAGE 1 Duration (min): 3 min : 0 sec Speed (mph): 1.7 Grade (%): 10 HR (bpm): 123 SBP (mmHg): 173 DBP (mmHg): 63 METS: --- Stage: STAGE 2 Duration (min): 1 min : 0 sec Speed (mph): 2.5 Grade (%): 12 HR (bpm): 130 SBP (mmHg): 173 DBP (mmHg): 63 METS: --- Stage: STAGE 2 Duration (min): 2 min : 0 sec Speed (mph): 2.5 Grade (%): 12 HR (bpm): 135 SBP (mmHg): 157 DBP (mmHg): 68 METS: --- Stage: STAGE 2 Duration (min): 2 min : 29 sec Speed (mph): 0.0 Grade (%): 0 HR (bpm): 141 SBP (mmHg): 157 DBP (mmHg): 68 METS: --- Stage: RECOVERY Duration (min): 0 min : 30 sec Speed (mph): 0.0 Grade (%): 0 HR (bpm): 136 SBP (mmHg): 157 DBP (mmHg): 68 METS: --- Stage: RECOVERY Duration (min): 1 min : 30 sec Speed (mph): 0.0 Grade (%): 0 HR (bpm): 127 SBP (mmHg): 157 DBP (mmHg): 68 METS: --- Stage: DOT
--- NOTE | 2022-03-20 07:35 | ECHO_ITS ---
Patient Info Name: Jose Gross Age: 56 years : 1965 Gender: Male Ht: 69 in Wt: 250 lbs BSA: 2.40 m2 HR: 86 bpm BP: 141 / 94 mmHg Technical Quality: Good Exam Date: 03/20/2022 8:00 AM Exam Location: [facility] Patient Status: Outpatient Admit Date: 03/20/2022 Staff Ordering Physician: Raymundo Espinoza DO Mailing Section Clerk: Landen Briceno, JASEN, RT Attending Provider: Raymundo Espinoza DO Referring Physician: Alexis MELO; Exam Type: CA echo doppler color flow Study Info Indications R01.1 - Cardiac murmur, unspecified Complete two-dimensional, color flow and Doppler transthoracic echocardiogram is performed. Strain analysis performed. Summary 1. Complete two-dimensional, color flow and Doppler transthoracic echocardiogram is performed. 2. Left ventricular chamber dimension is normal. 3. Left ventricular systolic function is normal, estimated at 60-65%. 4. The left ventricular diastolic function is grade I diastolic dysfunction. 5. E/e' 8 is minimally elevated. 6. Global longitudinal strain is normal at -20.7%. 7. There is moderate aortic valve sclerosis. 8. There is mild aortic valve stenosis with a peak velocity of 209 cm/s, mean gradient of 9 mmHg, and aortic valve area of 1.4 cm2. Left Ventricle E/e' 8 is minimally elevated. Global longitudinal strain is normal at -20.7%. Left ventricular chamber dimension is normal. Left ventricular systolic function is normal, estimated at 60-65%. The left ventricular diastolic function is grade I diastolic dysfunction. Right Ventricle Right ventricular systolic function is normal and with normal TAPSE 2.2 cm. Right ventricular chamber dimension is normal. Left Atria Left atrial chamber dimension is normal. Right Atria Right atrial chamber dimension is normal. Aortic Valve The aortic valve is trileaflet. There is moderate aortic valve sclerosis. There is mild aortic valve stenosis with a peak velocity of 209 cm/s, mean gradient of 9 mmHg, and aortic valve area of 1.4 cm2. There is no aortic valve regurgitation. Pulmonic Valve There is no pulmonic regurgitation. Mitral Valve There is no mitral valve stenosis. There is no mitral valve regurgitation. Tricuspid Valve There is no tricuspid valve regurgitation. Pericardium/Pleural There is no pericardial effusion. Inferior Vena Cava Normal inferior vena cava with >50% collapse upon inspiration consistent with normal right atrial pressure, 5 mmHg. Aorta The aortic root size at the sinus of Valsalva is normal. Left Ventricular Outflow Tract Name Value Normal LVOT 2D LVOT Diameter 2.0 cm LVOT Doppler LVOT Peak Gradient 4 mmHg LVOT Mean Gradient 2 mmHg LVOT VTI 19 cm LVOT VTI/AV VTI Ratio 0.5 LVOT Stroke Volume 62 ml LVOT CO 5.1 l/min LVOT CI 2.1 l/min/m2 Mitral Valve Name
== END 2022-03-20 07:17 | disposition home or self-care (01) ==
LOC: ANHCARD 07:19
PROVIDERS: PCP Internal Medicine; Visit Provider Internal Medicine Cardiovascular Disease
DX: R07.9 Chest pain, unspecified (principal); R01.1 Cardiac murmur, unspecified; I35.8 Other nonrheumatic aortic valve disorders
CPT/HCPCS: 93306; 93351

== ENCOUNTER 2022-07-24 14:02 | Outpatient (CLI) | payer BC, SELFPAY ==
--- NOTE | ~2022-07-24 | CT_ITS ---
EXAMINATION:CT lung screening DATE: 07/24/2022 14:30 INDICATION: Tobacco use. Current smoker with 30 pack year history. TECHNIQUE: Computed tomography (CT) of the chest was performed without intravenous contrast. Automate d exposure control and iterative reconstruction technique were employed. The dose-length product (DLP ) was 276.32 mGy-cm. COMPARISON: Chest CT 02/21/2021 FINDINGS: There is mild emphysema. There is mild atelectasis bilaterally. There is a 10 mm nodule in left lower lobe, stable from 02/21/2021. No pleural effusion. The heart size is normal. No pericardial effusion. There are coronary artery calcifications. There is a 4.2 cm cyst in left kidney. There is a 1 mm stone in left kidney. There are embolization coils in the abdomen. There are bridging endplate osteophytes at multiple levels in the spine, consistent with diffuse idiopathic skeletal hyperostosi s (DISH). IMPRESSION: 1. Lung-RADS category 2: Benign appearance or behavior. Continue annual screening with noncontrast lo w-dose chest CT in 12 months. Reviewed, dictated and finalized at location A. IMPRESSION: 1. Lung-RADS category 2: Benign appearance or behavior. Continue annual screeni ng with noncontrast low-dose chest CT in 12 months.
== END 2022-07-24 14:03 | disposition home or self-care (01) ==
PROVIDERS: PCP Internal Medicine; Visit Provider Physician Assistant
DX: Z12.2 Encounter for screening for malignant neoplasm of respiratory organs (principal); Z87.891 Personal history of nicotine dependence
CPT/HCPCS: 71271

== ENCOUNTER 2022-09-24 08:50 | Outpatient (CLI) | payer BC, SELFPAY ==
--- NOTE | 2022-10-22 20:05 | WPDSLEEPSTUD ---
Sleep Study Date of Study: 09/24/22 Ordering Provider: DARCI Colvin Interpreting Physician: Angélica Courtney MD Sleep Study Type: CPAP Titration Height: 1.68 m Weight: 117.934 kg Body Mass Index: 41.9 Neck Circumference (inches): 17 [place]: 19 Reason for Sleep Study * Hypersomnolence * Home sleep test on 11/28/2020 with AHI 12.3, desaturation to 81% with central apneas, presents for CPAP titration * 12/18/2020 CPAP titration; suboptimal with a low sleep efficiency 49% and fragmented sleep present at 5 cm with 1 minute of REM. Sleep History Jose Gross is a 56-year-old man who is always tired. He had a home sleep test 11/28/2020 with an AHI 12.3 and desaturation 81%, with central apneas present. He was started on auto-PAP 5-10 cm for a year without improvement in symptoms. He was seen in the pulmonary-sleep clinic several months ago, with an increase his range on auto-PAP to 8 -12 cm. He was compliant with this, continued to report fatigue through the day. He has difficulty falling asleep, staying asleep and he has a difficult time waking in the morning. He is excessively sleepy. He occasionally awakens from sleep feeling short of breath. He rarely awakens at night with heartburn, belching or coughing. He constantly snores and it is loud enough that others complain about it. He rarely has trouble sleeping with a cold. He rarely wakes up gasping for breath at night. He frequently has breathing problems at night observed by others. He occasionally sweats excessively at night. He rarely notices his heart pounding or beating irregularly at night. He frequently falls asleep during the day but never involuntarily. He reports that rarely he falls asleep while driving. He does not have loss of muscle tone with strong emotion. He occasionally has daytime difficulties due to excessive sleepiness. He does not feel paralyzed on waking or falling asleep and does not have vivid dreamlike scenes upon awakening or falling asleep. He does not feel afraid to go to sleep. He rarely has nightmares. He rarely remembers his dreams. He occasionally has racing thoughts. He does not feel sad or depressed. He occasionally has anxiety. He rarely has muscular tension. He does not notice parts of his body jerking. He occasionally has crawling and aching feelings in his legs. He occasionally has leg pain at night. He does not have morning jaw pain. He constantly is bothered by pain during the day. He occasionally is awakened by pain at night. He frequently wakes up feeling stiff in the morning. He occasionally wakes up with sore achy muscles. He occasionally wakes up with pain in the neck and spine. He has fatigue. Normal bedtime is 11:00 p.m., typically waking 3 times during the night to go to the bathroom. Once he awakens it may take him an hour or longer to return to sleep. He normally wakes at 8:00 a.m.. He estimates getting 4-6 hours of sleep at night. He keeps the same schedule on weekends. He takes naps in the afternoon or evening. A short nap is not refreshing. He is usually drowsy for 3 hours after waking. Habits: Tobacco 1 pack per day. Caffeine 2-3 cups in the morning. Alcohol, 3 beverages per week. No recreational substances. COUNT INCLUDES THE [facility] Past Medical History Medical History Body mass index [BMI] 37.0-37.9, adult Essential (primary) hypertension Hyperlipidemia Hypersomnolence Low back pain Obstructive sleep apnea (~11/2020) Splenic artery aneurysm Surgical History Surgical History No significant past surgical history Family History Family History Father , Cancer Lung cancer Mother Heart disease Sibling Bladder cancer Sibling Breast cancer Sibling Leukemia Other Cerebrovascular accident High cholesterol
[2022-10-22 20:41] VITALS: BMI 41.9
== END 2022-09-25 06:29 | disposition home or self-care (01) ==
LOC: ANHCSM 08:52
PROVIDERS: PCP Internal Medicine; Visit Provider Physician Assistant
DX: G47.10 Hypersomnia, unspecified (principal); G47.33 Obstructive sleep apnea (adult) (pediatric)
CPT/HCPCS: 95811

== ENCOUNTER 2023-01-13 14:53 | Outpatient (CLI) | payer BC, SELFPAY ==
--- NOTE | ~2023-01-13 | MR_ITS ---
EXAMINATION: MR lumbar spine wo con DATE: 01/13/2023 15:45 INDICATION: Chronic back pain. Urinary frequency. TECHNIQUE: Magnetic resonance imaging (MRI) of the lumbar spine was performed without intravenous con trast. Sequences included sagittal T2-weighted FSE, sagittal T2-weighted FS FSE, sagittal T1-weighted FSE, and axial T2-weighted FSE. COMPARISON: Lumbar spine MRI 06/11/2021 FINDINGS: Bone alignment is normal. Vertebral body heights are normal. There is mildly decreased disc height at L5-S1. There are bridging endplate osteophytes from T11 to L2, consistent with diffuse idi opathic skeletal hyperostosis (DISH). The distal spinal cord signal intensity is normal. The conus me dullaris is at L1-L2. The following disc levels are specifically discussed: L1-L2: The disc does not extend beyond the endplate margin. There is mild left facet joint osteoarthr itis. There is no neural foraminal stenosis. There is no central canal stenosis. L2-L3: There is a central protrusion. There is mild bilateral facet joint osteoarthritis. There is no neural foraminal stenosis. There is mild central canal stenosis. L3-L4: The disc does not extend beyond the endplate margin. There is mild bilateral facet joint osteo arthritis. There is no neural foraminal stenosis. There is no central canal stenosis. L4-L5: The disc is mildly bulging. There is moderate bilateral facet joint osteoarthritis. There is m oderate right and mild left neural foraminal stenosis. There is no central canal stenosis. L5-S1: The disc is bulging and has an annular fissure. There is severe bilateral facet joint osteoart hritis. There is mild bilateral neural foraminal stenosis. There is mild central canal stenosis. IMPRESSION: 1. Moderate lumbar spondylosis, stable from 06/11/2021. 2. DISH. Reviewed, dictated and finalized at location A.
== END 2023-01-13 14:54 | disposition home or self-care (01) ==
PROVIDERS: PCP Internal Medicine; Visit Provider Nurse Practitioner Family
DX: R35.0 Frequency of micturition (principal); R33.9 Retention of urine, unspecified; M47.896 Other spondylosis, lumbar region; M48.16 Ankylosing hyperostosis [Forestier], lumbar region
CPT/HCPCS: 72148

== ENCOUNTER 2023-01-31 09:23 | Outpatient (CLI) | payer BC, SELFPAY | END 2023-01-31 09:24 | disposition home or self-care (01) | PROVIDERS: PCP Internal Medicine; Visit Provider Physician Assistant | DX: D64.9 Anemia, unspecified (principal) | CPT/HCPCS: 36415; 82728 ==

== ENCOUNTER 2023-05-30 12:47 | Outpatient (CLI) | payer BC, SELFPAY | END 2023-05-30 12:48 | disposition home or self-care (01) | PROVIDERS: PCP Family Medicine; Visit Provider Physician Assistant | DX: D64.9 Anemia, unspecified (principal) | CPT/HCPCS: 36415; 82728 ==